=== PATIENT | male | born 1980 | race Caucasian/White ===

== ENCOUNTER 2020-08-12 17:33 | Emergency (ER) | payer BC, OTHER ==
[~2020-08-12] VITALS: Ht 180.3 cm; Wt 137.4 kg
[2020-08-12] MEDS ORDERED: morphine INJ 10 MG/ML 1ML (SYR OR VIAL) IVP STA ×2 (17:48→18:07)
--- NOTE | 2020-08-12 17:56 | NUR ---
[facility] CONTACTED FOR TRANSPORT
--- NOTE | 2020-08-12 17:58 | ED Chest Pain ---
General Chief Complaint: Chest Pain Stated Complaint: CHEST DISCOMFORT Nursing Triage Note: PT TO ROOM 09 VIA [facility] WITH C/O CHEST PAIN STARTING THIS MORNING. PT TEST COVID POS AT [facility] [place]. Nursing Sepsis Screen: No Definite Risk Source: patient Exam Limitations: no limitations History of Present Illness Date Seen by Provider: Aug 12, 2020 Time Seen by Provider: 17:35 Initial Comments This 39-year-old gentleman presents to the emergency room via EMS from [facility] with concerns about ST elevation on EKG. He developed chest pain near the left shoulder with some shortness of breath and diaphoresis this morning. Symptoms improved later in the morning and into early afternoon. However, symptoms returned and were worse starting around 14:30. He presented [place] [facility] where he had a positive Covid test and ST elevation was noted on EKG. He was transported to this ER via EMS. He has no known health problems. Vital signs are stable. He received aspirin 324 mg by EMS. Allergies and Home Medications Allergies Coded Allergies: No Known Drug Allergies (Unverified , 08/12/20) Patient Home Medication List Home Medication List Reviewed: Yes Review of Systems Review of Systems Constitutional: no symptoms reported EENTM: No Symptoms Reported Respiratory: See HPI Cardiovascular: See HPI Gastrointestinal: No Symptoms Reported Genitourinary: No Symptoms Reported Musculoskeletal: no symptoms reported Skin: see HPI Psychiatric/Neurological: No Symptoms Reported Endocrine: No Symptoms Reported Hematologic/Lymphatic: No Symptoms Reported Past [id number]-[id number] Hx Past Med/Social Hx: Reviewed Nursing Past Med/Soc Hx Patient Social History Recent Infectious Disease Expo: No Past Medical History Surgeries: No Respiratory: No Cardiac: No Neurological: No Reproductive Disorders: No Gastrointestinal: No Musculoskeletal: No Endocrine: No HEENT: No Cancer: No Psychosocial: No Physical Exam Vital Signs Vital Signs - First Documented 08/12/20 08/12/20 17:45 20:19 Temp 36.6 Pulse 70 Resp 19 B/P (MAP) 111/75 (87) Pulse Ox 98 O2 Delivery Room Air Capillary Refill : Less Than 3 Seconds Height, Weight, BMI Height: '" Weight: lbs. oz. kg; 42.00 BMI Method: General Appearance: WD/WN, Mild Distress, Obese HEENT: PERRL/EOMI, Normal ENT Inspection Neck: Normal Inspection Respiratory: Lungs Clear, Normal Breath Sounds, No Accessory Muscle Use, No Respiratory Distress Cardiovascular: Regular Rate, Rhythm, No Edema, No Murmur Gastrointestinal: Normal Bowel Sounds, Non Tender, Soft Extremity: Normal Inspection, No Pedal Edema Neurologic/Psychiatric: Alert, Oriented x3, No Motor/Sensory Deficits, Normal Mood/Affect, insurance claims analyst II-XII Norm as Tested Skin: Normal Color, Diaphoresis Progress/Results/Core Measures Results/Orders Lab Results Laboratory Tests Test 08/12/20 17:42 Range/Units White Blood Count 14.3 H 4.3-11.0 10^3/uL Red Blood Count 4.79 4.30-5.52 10^6/uL Hemoglobin 14.2 13.3-17.7 g/dL Hematocrit 42 40-54 % Mean Corpuscular Volume 88 80-99 fL Mean Corpuscular Hemoglobin 30 25-34 pg Mean Corpuscular Hemoglobin Concent 34 32-36 g/dL Red Cell Distribution Width 12.7 10.0-14.5 % Platelet Count 282 130-400 10^3/uL Mean Platelet Volume 9.5 9.0-12.2 fL Immature Granulocyte % (Auto) 0 % Neutrophils (%) (Auto) 76 H 42-75 % Lymphocytes (%) (Auto) 16 12-44 % Monocytes (%) (Auto) 7 0-12 % Eosinophils (%) (Auto) 0 0-10 % Basophils (%) (Auto) 0 0-10 % Neutrophils # (Auto) 10.9 H 1.8-7.8 10^3/uL Lymphocytes # (Auto) 2.3 1.0-4.0 10^3/uL Monocytes # (Auto) 1.0 0.0-1.0 10^3/uL Eosinophils # (Auto) 0.0 0.0-0.3 10^3/uL Basophils # (Auto) 0.0 0.0-0.1 10^3/uL Immature Granulocyte # (Auto) 0.1 0.0-0.1 10^3/uL Neutrophils % (Manual) 74 % Lymphocytes % (Manual) 23 % Monocytes % (Manual) 3 % Blood Morphology Comment NORMAL Prothrombin Time 12.9 12.2-14.7 SEC INR Comment 0.9 0.8-1.4 Activated Partial Thromboplast Time 27 24-35 SEC D-Dimer 0.27 0.00-0.49 UG/ML Sodium Level 139 135-145 MMOL/L Potassium Level 4.1 3.6-5.0 MMOL/L Chloride Level 106 98-107 MMOL/L Carbon Dioxide Level 25 21-32 MMOL/L Anion Gap 8 5-14 MMOL/L Blood Urea Nitrogen 16 7-18 MG/DL Creatinine 0.94 0.60-1.30 MG/DL Estimat Glomerular Filtration Rate > 60 BUN/Creatinine Ratio 17 Glucose Level 112 H 70-105 MG/DL Calcium Level 9.0 8.5-10.1 MG/DL Corrected Calcium 9.0 8.5-10.1 MG/DL Magnesium Level 2.2 1.6-2.4 MG/DL Total Bilirubin 0.7 0.1-1.0 MG/DL Aspartate Amino Transf (AST/SGOT) 19 5-34 U/L Alanine Aminotransferase (ALT/SGPT) 36 0-55 U/L Alkaline Phosphatase 113 40-136 U/L Lactate Dehydrogenase 215 125-220 U/L Myoglobin 23.8 10.0-92.0 NG/ML Troponin I < 0.028 <0.028 NG/ML C-Reactive Protein High Sensitivity 2.27 H 0.00-0.50 MG/DL Total Protein 7.0 6.4-8.2 GM/DL Albumin 4.0 3.2-4.5 GM/DL Procalcitonin 0.02 <0.10 NG/ML My Orders Orders - JOSE DAVIES MD Cbc With Automated Diff (08/12/20 17:45) Magnesium (08/12/20 17:45) Chest 1 View, Ap/Pa Only (08/12/20 17:45) Ekg Tracing (08/12/20 17:45) Comprehensive Metabolic Panel (08/12/20 17:45) Myoglobin Serum (08/12/20 17:45) Protime With Inr (08/12/20 17:45) Partial Thromboplastin Time (08/12/20 17:45) O2 (08/12/20 17:45) Monitor-Rhythm Ecg Trace Only (08/12/20 17:45) Ed Iv/Invasive Line Start (08/12/20 17:45) Troponin I (08/12/20 17:45) Heparin Drip 13710 Unit/500ml (Heparin (08/12/20 18:00) Heparin (Bolus Per Protocol) (Heparin (B (08/12/20 18:00) Clopidogrel Tablet (Plavix Tablet) (08/12/20 18:00) Morphine Injection (Morphine Injection (08/12/20 17:48) Fibrin Degradation Products (08/12/20 17:51) Procalcitonin (Pct) (08/12/20 17:51) Hs C Reactive Protein (08/12/20 17:51) LDH (08/12/20 17:51) Manual Differential (08/12/20 17:42) Medications Given in ED Vital Signs/I&O 08/12/20 08/12/20 08/12/20 17:45 17:51 20:19 Temp 36.6 Pulse 70 89 Resp 19 19 B/P (MAP) 111/75 (87) 122/63 Pulse Ox 98 O2 Delivery Room Air Room Air Room Air Blood Pressure Mean: 87 Progress Progress Note #1: Time: 18:00 Progress Note EKG at [facility] as well as EKG in the ER is suspicious for ST elevation FL. In the context of active chest pain and diaphoresis this is concerning. Case was discussed with Dr. Viera. Unfortunately, another STEMI patient arrived just a couple minutes prior to this patient and is already in route to the [facility]. For this reason Dr. Viera recommended transfer to another test lab technician ready facility. Patient is agreeable to transfer. Dr. Erickson discussed the case with Dr. Holt, ER physician at [facility], who accepted the transfer. The helicopter is in route. In the meantime patient is receiving a heparin bolus and drip, Plavix, and morphine at Dr. Viera's direction. Beta- blockers were not given due to heart rate in the 50s and 60s. Progress Note #2: Time: 18:03 Progress Note Patient complained of nausea and Zofran was ordered. Care of this patient is being transitioned to Dr. Erickson at this time. Progress Note #3: Time: 18:45 Progress Note Ajay arrived to transfer. Dr. Erickson onfirmed with Dr. Viera patient is still to be transferred. The prior STEMI patient is still in procedure. Patient is to be transferred. Initial ECG Impression Date: Aug 12, 2020 Initial ECG Impression Time: 17:33 Initial ECG Rate: 51 Initial ECG Rhythm: Normal Sinus Initial ECG Intervals: Normal Initial ECG Impression: Acute FL Comment ST elevation most prominent in lead II consistent with ischemia. No abnormal intervals or axis deviation. Diagnostic Imaging Diagonstic Imaging: Xray Plain Films/CT/US/NM/MRI: chest Comments Chest x-ray viewed by me. Report not yet available. No acute abnormality appreciated. Departure Impression Primary Impression: ST elevation FL (STEMI) Qualified Codes: I21.3 - ST elevation (STEMI) myocardial infarction of unspecified site Additional Impression: COVID-19 Disposition: 02 XFER SHT-TRM HOSP Condition: Stable Transfer Transfer Reason: Exceeds level of care Time Spoke to Accepting Phy: 17:51 Transfer Progress Notes Transfer accepted by Dr. Holt as arranged by Dr. Erickson. Patient will be transferred by air. Transfer Time: 19:10 Transfer Facility: [facility] Method of Transfer: Air JOSE DAVIES MD Aug 12, 2020 17:58
[2020-08-12] MEDS ORDERED: HEParin DRIP 25000 UNIT/500ML 500 ML IV ONE (18:00)
[2020-08-12] MEDS ORDERED: CLOPIDOGREL 300 MG (PLAVIX) TABLET PO ONE (18:00)
[2020-08-12] MEDS ORDERED: HEParin 1000 UNIT/ML (10ML VIAL) FOR BOLUS IV ONE (18:00)
[2020-08-12 18:06] LABS: BASOPHILS % (AUTO) 0 % (0-10); EOSINOPHILS % (AUTO) 0 % (0-10); HEMATOCRIT 42 % (40-54); HEMOGLOBIN 14.2 g/dL (13.3-17.7); LYMPHOCYTES # (AUTO) 2.3 10^3/uL (1.0-4.0); LYMPHOCYTES % (AUTO) 16 % (12-44); MEAN CORPUSCULAR HEMOGLOBIN 30 pg (25-34); MEAN CORPUSCULAR HGB CONC 34 g/dL (32-36); MEAN CORPUSCULAR VOLUME 88 fL (80-99); MEAN PLATELET VOLUME 9.5 fL (9.0-12.2); MONOCYTES % (AUTO) 7 % (0-12); NEUTROPHILS # (AUTO) 10.9 10^3/uL (1.8-7.8); NEUTROPHILS % (AUTO) 76 % (42-75); PLATELET COUNT 282 10^3/uL (130-400); WHITE BLOOD COUNT 14.3 10^3/uL (4.3-11.0)
--- NOTE | 2020-08-12 18:13 | Diagnostic Imaging Report ---
INDICATION: Chest pain. FINDINGS: The heart size is normal. There is patchy right basilar infiltrate. There is no pleural effusion or pneumothorax. The mediastinum is unremarkable. IMPRESSION: Patchy right basilar infiltrate possibly reflecting early pneumonia. Recommend clinical correlation. Dictated by: Dictated on workstation # [id number]
[2020-08-12] MEDS ORDERED: ONDANSETRON 4 MG/2 ML (SDV) Z0FRAN IVP ONE (18:15)
--- NOTE | 2020-08-12 18:19 | NUR ---
[facility] CONTACTED SECOND TIME FOR TRANPORT
[2020-08-12 18:23] LABS: INR 0.9 (0.8-1.4); PROTHROMBIN TIME PATIENT 12.9 SEC (12.2-14.7)
[2020-08-12 18:25] LABS: CHLORIDE 106 MMOL/L (98-107); POTASSIUM 4.1 MMOL/L (3.6-5.0); SODIUM 139 MMOL/L (135-145)
--- NOTE | 2020-08-12 18:25 | NUR ---
[facility] CALLED AND STATES THEY ARE 17 MINUTES OUT.
[2020-08-12 18:27] LABS: GLUCOSE 112 MG/DL (70-105)
[2020-08-12 18:28] LABS: CARBON DIOXIDE 25 MMOL/L (21-32)
[2020-08-12 18:29] LABS: BILIRUBIN,TOTAL 0.7 MG/DL (0.1-1.0)
[2020-08-12 18:30] LABS: ALKALINE PHOSPHATASE 113 U/L (40-136)
[2020-08-12 18:31] LABS: CREATININE SERUM 0.94 MG/DL (0.60-1.30); GFR ESTIMATED > 60
[2020-08-12 18:32] LABS: BUN/CREATININE RATIO 17
[2020-08-12 18:34] LABS: ALANINE AMINOTRANSFERASE 36 U/L (0-55); MAGNESIUM 2.2 MG/DL (1.6-2.4)
--- NOTE | 2020-08-12 18:45 | NUR ---
[facility] ARRIVED FOR PT TRANSPORT.
[2020-08-12 19:01] LABS: LYMPHOCYTES % (MANUAL) 23 %; MONOCYTES % (MANUAL) 3 %; NEUTROPHILS % (MANUAL) 74 %; RBC MORPH NORMAL
[2020-08-12 20:19] VITALS: BP 122/63
== END 2020-08-12 19:10 | disposition short-term general hospital (02) ==
LOC: ER 17:35
DX: I21.3 ST elevation (STEMI) myocardial infarction of unspecified site (principal); U07.1 COVID-19; E66.9 Obesity, unspecified; Z68.41 Body mass index [BMI] 40.0-44.9, adult
CPT/HCPCS: 36415; 71045; 80053; 83615; 83735; 83874; 84145; 84484; 85007; 85027; 85379; 85610; 85730; 86141; 93005; 93041; 99291